=== PATIENT | male | born 1985 | race Caucasian/White ===

== ENCOUNTER 2023-05-29 06:04 | Emergency (ER) | payer SELFPAY ==
[2023-05-29] MEDS ORDERED: MORPHINE 4 MG/ML SYR ONE (06:35)
[2023-05-29] MEDS ORDERED: NA CHLORIDE 0.9% 1,000 ML ONE (06:35)
[2023-05-29] MEDS ORDERED: ONDANSETRON 4 MG/2 ML VIAL ONE (06:36)
[2023-05-29 06:51] LABS: Absolute Lymphocytes (CBC) 1.9 K/uL (0.7-4.9); Hematocrit 43.7 % (39.6-49.0); Lymphocytes % 22.3 % (15.3-44.8); MCV 86.5 fL (80-100); MPV 7.4 fL (7.6-11.3); Platelets 269 thou/uL (152-406); RBC Red Blood Cell Count 5.05 M/uL (4.33-5.43)
[2023-05-29] MEDS ORDERED: TAMSULOSIN 0.4 MG SR CAP ONE (07:03)
[2023-05-29] MEDS ORDERED: KETOROLAC 30 MG/ML INJ ONE (07:04)
[2023-05-29 07:06] LABS: Albumin 3.7 g/dL (3.4-5.0); Bilirubin Total 0.4 mg/dL (0.2-1.0); Potassium 3.6 mEq/L (3.5-5.1); Protein, Total 7.5 g/dL (6.4-8.2)
[2023-05-29 07:09] LABS: Specific Gravity 1.024 (1.005-1.030); Urine Bacteria <20 /HPF (<20); Urine Bilirubin NEGATIVE (Negative); Urine Blood 3+ (OVER) (Negative); Urine Clarity Turbid (Clear); Urine Color Yellow (Yellow); Urine Glucose NEGATIVE (Negative); Urine Mucus 1+ /HPF (None Seen); Urine Protein TRACE (Negative); Urine RBC >50 /HPF (None Seen); Urine Urobilinogen Normal (Normal); Urine pH 5.5 (5.0-7.0)
--- NOTE | 2023-05-29 07:30 | RAD REPORT ---
EXAM DESCRIPTION: CT - Stone Protocol - 05/29/2023 7:12 am CLINICAL HISTORY: Abdominal pain. Right flank pain COMPARISON: None. TECHNIQUE: Computed axial tomography of the abdomen pelvis was obtained without oral or IV contrast. Lack of IV and oral contrast limits evaluation of solid organs, appendix, bowel, and vessels. Morel l reformatted images were obtained and reviewed. All CT scans are performed using dose optimization technique as appropriate and may include automated exposure control or mA/KV adjustment according to patient size. FINDINGS: Fatty liver. The spleen, pancreas and adrenals grossly normal 1 millimeter calculus left kidney. No hydronephrosis. Mild right hydronephrosis. Right ureter are mildly dilated. 4 millimeter calculus right UVJ Normal appendix. No evidence diverticulitis Small bilateral inguinal hernias contain fat IMPRESSION: 4 millimeter calculus right UVJ resulting in mild right hydronephrosis
--- NOTE | 2023-05-29 07:41 | ER ---
Nurse's Notes [facility] Name: Yonas Zamora II Age: 37 yrs Sex: Male : 1985 Arrival Date: 05/29/2023 Time: 06:04 Bed 16 Private MD: Diagnosis: Ureterolithiasis, kidney stone right side with hydronephrosis, right flank pain Presentation: 05/29 06:14 Chief complaint: Patient states: ACUTE ONSET R FLANK PAIN WITH OLIGURIA. Coronavirus bp screen: At this time, the client does not indicate any symptoms associated with coronavirus-19. Ebola Screen: No symptoms or risks identified at this time. Initial Sepsis Screen: Does the patient meet any 2 criteria? No. Patient's initial sepsis screen is negative. Does the patient have a suspected source of infection? No. Patient's initial sepsis screen is negative. Risk Assessment: Do you want to hurt yourself or someone else? Patient reports no desire to harm self or others. Onset of symptoms was May 29, 2023 at 04:30. 06:14 Method Of Arrival: Ambulatory bp 06:14 Acuity: KEREN 3 bp Triage Assessment: 06:15 General: Appears uncomfortable, Behavior is calm, cooperative, appropriate for age. bp Pain: Complains of pain in right flank. Musculoskeletal: Circulation, motion, and sensation intact. Historical: - Allergies: 06:15 No Known Allergies; bp - Home Meds: 06:15 None [Active]; bp - PMHx: 06:15 None; bp - Immunization history:: Adult Immunizations up to date. - Social history:: Smoking status: Patient denies any tobacco usage or history of. - Family history:: not pertinent. Screenin:27 [facility] ED Fall Risk Assessment (Adult) History of falling in the last 3 months, lg3 including since admission No falls in past 3 months (0 pts). Abuse screen: Denies threats or abuse. Denies injuries from another. Nutritional screening: No deficits noted. Tuberculosis screening: No symptoms or risk factors identified. Assessment: 06:27 General: Appears in no apparent distress. uncomfortable, Behavior is calm, cooperative, lg3 restless. Pain: Complains of pain in back and right flank Pain currently is 10 out of 10 on a pain scale. Noted to be grimacing, guarding, moaning, restless. Neuro: Vasquez Agitation-Sedation Scale (RASS): +1 Restless Level of Consciousness is awake, alert, obeys commands, Oriented to person, place, time, situation. Cardiovascular: No deficits noted. Denies chest pain, shortness of breath, Capillary refill < 3 seconds Clubbing of nail beds is absent JVD is absent Patient's skin is warm and dry. Respiratory: No deficits noted. Airway is patent Respiratory effort is even, unlabored, Respiratory pattern is regular, symmetrical. GI: No deficits noted. No signs and/or symptoms were reported involving the gastrointestinal system. Abdomen is round non-distended, Patient currently denies abdominal pain, nausea, vomiting. : Urine is clear, Reports inability to void, pain in right flank(s). EENT: No deficits noted. No signs and/or symptoms were reported regarding the EENT system. Derm: No deficits noted. No signs and/or symptoms reported regarding the dermatologic system. Skin is intact, is healthy with good turgor, Skin is dry, Skin is normal, Skin temperature is warm. Musculoskeletal: No deficits noted. No signs and/or symptoms reported regarding the musculoskeletal system. Circulation, motion, and sensation intact. Range of motion: intact in all extremities. Vital Signs: 06:14 BP 147 / 103; Pulse 73; Resp 18; Temp 98; Pulse Ox 98% ; Weight 122.47 kg; Height 6 ft. bp 3 in. ; 07:50 BP 139 / 99; Pulse 72; Resp 18; Pulse Ox 99% on R/A; ld1 06:14 Body Mass Index 33.75 (122.47 kg, 190.5 cm) bp ED Course: 06:08 Patient arrived in ED. gm2 06:15 Triage completed. bp 06:15 Arm band placed on. bp 06:27 Rosa Arellano, RN is Primary Nurse. lg3 06:27 Patient has correct armband on for positive identification. Placed in gown. Bed in low lg3 position. Call light in reach. Side rails up X 1. Client placed on continuous cardiac and pulse oximetry monitoring. NIBP monitoring applied. Door closed. Noise minimized. Warm blanket given. Family accompanied patient. 06:27 Inserted saline lock: 20 gauge in left forearm, using aseptic technique. Blood lg3 collected. Patient maintains SpO2 saturation greater than 95% on room air. 06:43 Potepalov, Max, MD is Attending Physician. sp4 07:07 Attending Physician role handed off by Max Moreno MD sp3 07:07 Jonnathan Temple MD is Attending Physician. sp3 07:13 CT Stone Protocol In Process Unspecified. EDMS 07:40 Bud Alan MD is Referral Physician. sp3 07:50 No provider procedures requiring assistance completed. IV discontinued, intact, ld1 bleeding controlled, No redness/swelling at site. Administered Medications: 06:30 Drug: NS 0.9% IV 1000 ml IV at 1000 ml once Route: IV; Rate: 1000 ml; Site: left lg3 forearm; 06:31 Drug: morphine IVP or IV 4 mg IVP once over 4 mins Route: IVP; Infused Over: 4 mins; lg3 Site: left forearm; 06:31 Drug: Ondansetron IVP 4 mg IVP once; over 2 minutes Route: IVP; Site: left forearm; lg3 06:51 Drug: Ketorolac IVP 30 mg IVP once Route: IVP; Site: left antecubital; la4 06:51 Drug: Flomax PO 0.4 mg PO once Route: PO; la4 Medication: 07:50 VIS not applicable for this client. ld1 Outcome: 07:40 Discharge ordered by . sp3 07:50 Discharged to home ambulatory, with family, ld1 07:50 Condition: stable 07:50 Discharge instructions given to patient, family, Instructed on discharge instructions, follow up and referral plans. medication usage, Demonstrated understanding of instructions, follow-up care, medications, Prescriptions given X 2, 07:50 Patient left the ED. ld1 Signatures: Dispatcher [employer] EDCA Raheel Rey RN RN Rosa Dutton RN RN lg3 Shamika Prasad RN RN ld1 Jonnathan Temple MD MD sp3 Max Moreno MD MD sp4 Suzette Fields 2 Antoine Sarmiento RN RN la4
--- NOTE | 2023-05-29 07:41 | EDPHYS ---
Physician Documentation [facility] Name: Yonas Zamora II Age: 37 yrs Sex: Male : 1985 Arrival Date: 05/29/2023 Time: 06:04 Bed 16 Private MD: ED Physician Jonnathan Temple HPI: 05/29 06:43 This 37 yrs old Male presents to ER via Ambulatory with complaints of Back sp4 Pain, Possible Kidney Stone. 06:56 Patient is 37-year-old male with no significant past medical history presents with sp4 acute onset of the right upper right flank pain associated with pain with urination. denies any hematuria. Pain started acutely on awakening. . Historical: - Allergies: 06:15 No Known Allergies; bp - Home Meds: 06:15 None [Active]; bp - PMHx: 06:15 None; bp - Immunization history:: Adult Immunizations up to date. - Social history:: Smoking status: Patient denies any tobacco usage or history of. - Family history:: not pertinent. ROS: 06:56 Constitutional: Negative for fever, chills, and weight loss, : Positive for right sp4 flank pain positive right back pain positive pain on urination negative hematuria 06:56 All other systems are negative, Exam: 06:56 Constitutional: This is a well developed, well nourished patient who is awake, alert, sp4 uncomfortable appearing Head/Face: Normocephalic, atraumatic. Eyes: Pupils equal round and reactive to light, extra-ocular motions intact. Lids and lashes normal. Conjunctiva and sclera are not injected. Cornea within normal limits. Periorbital areas with no swelling, redness, or edema. ENT: Nares patent. No nasal discharge, no septal abnormalities noted. Tympanic membranes are normal and external auditory canals are clear. Oropharynx with no redness, swelling, or masses, exudates, or evidence of obstruction, uvula midline. Mucous membranes moist. Neck: Trachea midline, no thyromegaly or masses palpated, and no cervical lymphadenopathy. Supple, full range of motion without nuchal rigidity, or vertebral point tenderness. Chest/axilla: Normal chest wall appearance and motion. Nontender with no deformity. No lesions are appreciated. Cardiovascular: Regular rate and rhythm with a normal S1 and S2. No gallops, murmurs, or rubs. Normal PMI, no JVD. No pulse deficits. Respiratory: Lungs have equal breath sounds bilaterally, clear to auscultation and percussion. No rales, rhonchi or wheezes noted. No increased work of breathing, no retractions or nasal flaring. Abdomen/GI: Soft, non-tender, with normal bowel sounds. No distension or tympany. No guarding or rebound. No evidence of tenderness throughout. Back: No spinal tenderness. No costovertebral tenderness. Skin: Warm, dry with normal turgor. Normal color with no rashes, no lesions, and no evidence of cellulitis. MS/ Extremity: Pulses equal, no cyanosis. Neurovascular intact. Full, normal range of motion. Neuro: Awake and alert, GCS 15, oriented to person, place, time, and situation. Cranial nerves II-XII grossly intact. Motor strength 5/5 in all extremities. Sensory grossly intact. Psych: Awake, alert, with orientation to person, place and time. Behavior, mood, and affect are within normal limits Vital Signs: 06:14 BP 147 / 103; Pulse 73; Resp 18; Temp 98; Pulse Ox 98% ; Weight 122.47 kg; Height 6 ft. bp 3 in. ; 07:50 BP 139 / 99; Pulse 72; Resp 18; Pulse Ox 99% on R/A; ld1 06:14 Body Mass Index 33.75 (122.47 kg, 190.5 cm) bp MDM: 06:46 Patient medically screened. sp4 06:56 Differential diagnosis: Cholelithiasis Fatigue Fracture Osteoarthritis. Data reviewed: sp4 vital signs, nurses notes, old medical records, lab test result(s), radiologic studies, CT scan. Transition of care: After a detail discussion of the patient's case, care is transferred to Jonnathan Temple MD. 07:29 ED course: Patient taken over by me at 7 AM from x-ray physician. Patient is a sp3 37-year-old male with right-sided flank pain since yesterday evening. On my interpretation of the CT scan he has a 6.4 mm kidney stone on the right UVJ. Laboratory values are within normal limits and UA demonstrates only microscopic hematuria. Pain is currently controlled. Once CT scan results are reviewed in terms of the radiology read, I will be able to disposition patient which is likely discharge home with urology follow-up.. 07:39 ED course: Radiology read stone is 4 mm with mild hydro-. At this point I will sp3 discharge patient home on diclofenac and urology follow-up.. 05/29 06:18 Order name: CBC with Diff; Complete Time: 07:13 bp 05/29 06:18 Order name: CMP; Complete Time: 07:14 bp 05/29 06:18 Order name: Lipase; Complete Time: 07:14 bp 05/29 06:18 Order name: Urinalysis w/ reflexes; Complete Time: 07:13 bp 05/29 06:18 Order name: CT Stone Protocol; Complete Time: 07:39 bp 05/29 06:18 Order name: IV Saline Lock; Complete Time: 06:31 bp 05/29 06:18 Order name: Labs collected and sent; Complete Time: 06:31 bp Administered Medications: 06:30 Drug: NS 0.9% IV 1000 ml IV at 1000 ml once Route: IV; Rate: 1000 ml; Site: left lg3 forearm; 06:31 Drug: morphine IVP or IV 4 mg IVP once over 4 mins Route: IVP; Infused Over: 4 mins; lg3 Site: left forearm; 06:31 Drug: Ondansetron IVP 4 mg IVP once; over 2 minutes Route: IVP; Site: left forearm; lg3 06:51 Drug: Ketorolac IVP 30 mg IVP once Route: IVP; Site: left antecubital; la4 06:51 Drug: Flomax PO 0.4 mg PO once Route: PO; la4 Disposition Summary: 05/29/23 07:40 Discharge Ordered Notes: Location: Home sp3 Condition: Stable sp3 Diagnosis - Ureterolithiasis, kidney stone right side with hydronephrosis, right flank pain sp3 Followup: sp3 - With: Bud Alan MD - When: Upon discharge from the Emergency Department - Reason: Recheck today's complaints Discharge Instructions: - Discharge Summary Sheet sp3 - Kidney Stones sp3 Forms: - Medication Reconciliation Form sp3 - Thank You Letter sp3 - Antibiotic Education sp3 - Prescription Opioid Use sp3 - Patient Portal Instructions sp3 - Leadership Thank You Letter sp3 Prescriptions: - Flomax 0.4 mg Oral capsule - take 1 capsule ORAL route daily; 5 capsule; Refills: 0, Product Selection sp3 Permitted - Diclofenac Sodium 75 mg Oral Tablet Sustained Release - take 1 tablet ORAL route 2 times per day; 30 tablet; Refills: 0, Product sp3 Selection Permitted Signatures: Dispatcher [employer] Raheel Hyatt, RN RN Rosa Dutton RN RN lg3 Jonnathan Temple MD MD sp3 Max Moreno MD MD sp4 Antoine Sarmiento RN RN la4
[2023-05-29 07:57] VITALS: TEMP 98
[2023-05-29 07:58] VITALS: BP 139/99; O2SAT 99
== END 2023-05-29 07:50 | disposition home or self-care (01) ==
LOC: ER 06:04
DX: N13.2 Hydronephrosis with renal and ureteral calculous obstruction (principal)
CPT/HCPCS: 36415; 74176; 76377; 80053; 81001; 83690; 85025; 99285; J2405; J7030